=== PATIENT | male | born 1935 | race Caucasian/White ===

== ENCOUNTER → 2017-05-13 | Outpatient (CLI) | payer OTHER | LOC: FIMAGING 07:21 | PROVIDERS: ATTEND Internal Medicine Infectious Disease | DX: I87.2 Venous insufficiency (chronic) (peripheral) (principal); L97.821 Non-pressure chronic ulcer of other part of left lower leg limited to breakdown of skin ==

== ENCOUNTER 2018-07-16 11:53 | Emergency (ER) | payer OTHER ==
--- NOTE | 2018-07-16 12:31 | EDPHY ---
H & P Stated Complaint: Recent diagnosis with a UTI, increased back pain. Time Seen by Provider: 07/16/18 12:27 HPI/ROS: CHIEF COMPLAINT: Mid low back pain HISTORY OF PRESENT ILLNESS: The patient is an 82-year-old man with a history of chronic lumbar pain and degenerative disc disease who comes to the emergency department complaining of low back pain. He and his state that he has been treated recently for urinary tract infection. He was seen initially 7 days ago for dysuria and retention and was found have positive urinalysis. He was started on Keflex with his primary Dr. Shoemaker. 2 days later when the cultures came back for Aerococcus Urinae as well as gram-negative rods, he was switched to amoxicillin at the advice of Dr. Lennon from Infectious Disease. His culture was sent to the [facility] for sensitivities. He has been on amoxicillin for 4 days now. He did have a another urinalysis 2 days ago which was still positive for white cells and nitrates. His dysuria and retention has improved but he is complaining of low back pain. His assumed this was his chronic low back pain but his primary recommended he come here to rule out pyelonephritis. He also was admitted for urosepsis last year. He has not had a fever. No nausea vomiting. No rashes. Severity: Moderate Modifying factors: Mild improvement with antibiotics. REVIEW OF SYSTEMS: Constitutional: denies: chills, fever, recent illness, recent injury EENTM: denies: blurred vision, double vision, nose congestion Respiratory: denies: cough, shortness of breath Cardiac: denies: chest pain, irregular heart rate, lightheadedness, palpitations Gastrointestinal/Abdominal: denies: abdominal pain, diarrhea, nausea, vomiting, blood streaked stools Genitourinary: denies: dysuria, frequency, hematuria, pain Musculoskeletal: See HPI Skin: denies: lesions, rash, jaundice, bruising Neurological: denies: headache, numbness, paresthesia, tingling, dizziness, weakness Hematologic/Lymphatic: denies: blood clots, easy bleeding, easy bruising Immunologic/allergic: denies: HIV/AIDS, transplant 10 systems reviewed and negative except as noted EXAM: GENERAL: Well-appearing, well-nourished and in no acute distress. HEAD: Atraumatic, normocephalic. EYES: Pupils equal round and reactive to light, extraocular movements intact, sclera anicteric, conjunctiva are normal. ENT: TMs normal, nares patent, oropharynx clear without exudates. Moist mucous membranes. NECK: Normal range of motion, supple without lymphadenopathy or JVD. LUNGS: Breath sounds clear to auscultation bilaterally and equal. No wheezes rales or rhonchi. HEART: Regular rate and rhythm without murmurs, rubs or gallops. ABDOMEN: Soft, nontender, normoactive bowel sounds. No guarding, no rebound. No masses appreciated. : No scrotal erythema or rashes. No tenderness. No masses. BACK: No CVA tenderness, no spinal tenderness, step-offs or deformities EXTREMITIES: Normal range of motion, no pitting or edema. No clubbing or cyanosis. NEUROLOGICAL: Cranial nerves II through XII grossly intact. Normal speech, normal gait. 5/5 strength, normal movement in all extremities, normal sensation , normal reflexes PSYCH: Normal mood, normal affect. SKIN: Warm, dry, normal turgor, no visible rashes or lesions. Source: Patient Exam Limitations: No limitations - Personal History Current Tetanus Diphtheria and Acellular Pertussis (TDAP): Yes Tetanus Vaccine Date: < 10 years - Medical/Surgical History Hx Asthma: No Hx Chronic Respiratory Disease: No Hx Diabetes: No Hx Cardiac Disease: No Hx Renal Disease: No Hx Cirrhosis: No Hx Alcoholism: No Hx HIV/AIDS: No Hx Splenectomy or Spleen Trauma: No Other PMH: left foot surgery, right hip fracture with subsequent surgery . hernia surgery x2 ventral. Parkinsons. Achilles tendon repair - Family History Significant Family History: No pertinent family hx - Social History Smoking Status: Never smoked Alcohol Use: Sober Drug Use: None Constitutional: Initial Vital Signs Temperature (C) 36.6 C 07/16/18 11:54 Heart Rate 64 07/16/18 11:54 Respiratory Rate 16 07/16/18 11:54 Blood Pressure 138/92 H 07/16/18 11:54 O2 Sat (%) 92 07/16/18 11:54 O2 Delivery Mode Room Air Allergies/Adverse Reactions: lactose Allergy (Verified 10/07/15 11:36) Sulfa (Sulfonamide Antibiotics) Allergy (Verified 10/07/15 11:36) Home Medications: Medication Instructions Recorded Calcium Carbonate [Oyster Shell 500 mg PO DAILY 10/07/15 Calcium 500 mg (*)] Carbidopa/Levodopa 25/100Mg 2 tab PO TIDMEAL 10/07/15 [Sinemet 25/100 MG (*)] Cholecalciferol Vit D3 [Vitamin D3 1,000 units PO DAILY 10/07/15 (*)] Gabapentin [Neurontin 100 MG (*)] 200 mg PO TIDMEAL 10/07/15 Herbals/Supplements -Info Only 1 ea PO DAILY 10/07/15 Multivitamins [Multivitamin (*)] 1 each PO DAILY 10/07/15 [place]-3 Fatty Acids [Fish Oil 1000 1,000 mg PO DAILY 10/07/15 mg (*)] Simvastatin 40 mg PO DAILY18 10/07/15 rOPINIRole HCL [Requip 2mg (*)] 2 mg PO TIDMEAL 10/07/15 Enoxaparin [Lovenox 40 MG (*)] 40 mg SC DAILY #0 syr 10/11/15 Hydrocodone/APAP 5/325 [[place] 1 - 2 tab PO Q3 PRN #0 tab 10/11/15 5/325 (*)] Hydrocortisone 1% [Hydrocortisone 1 aryan TP BID #0 cream 10/11/15 1% cream (*)] Magnesium Hydroxide [Milk of 30 ml PO DAILY PRN #0 udcup 10/11/15 Magnesia (*)] Polyethylene Glycol 3350 [Miralax 17 gm PO DAILY #0 pkt 10/11/15 17 gm (*)] Sennosides/Docusate Sodium 1 - 2 tab PO BID #0 tab 10/11/15 [Senokot-S] Medical Decision Making ED Course/Re-evaluation: 3:00 p.m. I discussed the case with Dr. Ivan Lennon who recommends staying on the amoxicillin and following in his clinic tomorrow. Patient family are happy with this plan and declines further workup or testing at this time. They are eager to go home. We discussed indications for returning. Differential Diagnosis: Partial list of the Differential diagnosis considered include but were not limited to; urinary tract infection, pyelonephritis, constipation, chronic low back pain and although unlikely based on the history and physical exam, I also considered kidney stone, sepsis. I discussed these differential diagnoses and the plan with the patient as well as the usual and expected course. The patient understands that the diagnosis is provisional and that in medicine we are not always correct and that further workup is often warranted. Usual and customary warnings were given. All of the patient's questions were answered. The patient was instructed to return to the emergency department should the symptoms at all worsen or return, otherwise to followup with the physician as we discussed. - Data Points Laboratory Results: Laboratory Results 07/16/18 13:11 07/16/18 13:11 Medications Given: Discontinued Medications Sodium Chloride (Ns) 2,200 mls @ 4,400 mls/hr 30 ml/kg infuse over 30 min ( 2200 ml) IV EDNOW ONE PRN Reason: Protocol Stop: 07/16/18 13:06 Last Admin: 07/16/18 13:17 Dose: 2,200 mls Departure - Departure Disposition: Home, Routine, Self-Care Clinical Impression: Urinary tract infection Qualifiers: Urinary tract infection type: acute cystitis Hematuria presence: without hematuria Qualified Code(s): N30.00 - Acute cystitis without hematuria Condition: Fair Instructions: Urinary Tract Infection in Men (ED) Additional Instructions: Continue the amoxicillin. Follow up with her regular doctor in 2 days for culture results. Follow-up in Dr. Lennon is office tomorrow 2:00 p.m.. Referrals: Guillermina King MD [Primary Care Provider] - 2-3 days, call for aryantIvan Caal MD [Medical Doctor] - As per Instructions
[2018-07-16] MEDS ORDERED: NS 2,200 ML IV ONE (12:37)
[2018-07-16 13:24] LABS: PLATELET COUNT 168 10^3/uL (150-400)
[2018-07-16 13:36] LABS: INR 1.06 (0.83-1.16)
[2018-07-16 15:47] VITALS: BP 177/101
== END 2018-07-16 15:47 | disposition home or self-care (01) ==
DX: N30.00 Acute cystitis without hematuria (principal); Z79.2 Long term (current) use of antibiotics; G20 Parkinson's disease